=== PATIENT | female | born 1985 | race Caucasian/White ===

== ENCOUNTER 2016-10-12 05:29 | Inpatient (IN) | payer MEDICAID ==
[~2016-10-12] VITALS: Ht 165.1 cm; Wt 91.4 kg
[2016-10-12] VITALS (18 sets, daily range): BP systolic 121–144; BP diastolic 68–82; PULSE 74–106; TEMP 97.4–98.1
[~2016-10-12 05:29] MED LIST: AMOXICILLIN 50500 MG PO; EQUALINE PRENATAL PO; METRONIDAZOLE500 MG PO; MIRENA52 MG; NO HOME MEDICATIONS; NORCO 325 MG-51 TAB PO; PRENATAL1 TA1 PO
[2016-10-12 05:57] LABS: BASO % 0.1 % (0.0-2.0); EOS # 0.2 (0.0-0.7); EOS % 2.1 % (0-4.0); GRAN # 6.6 (1.4-6.5); GRAN % 61.4 % (42.2-75.2); HEMATOCRIT 37.6 % (37.0-47.0); HEMOGLOBIN 12.9 g/dl (12.5-16.0); LYMPH # 2.9 (1.2-3.4); LYMPH % 27.5 % (20.0-51.0); MEAN CELL VOLUME 89 fl (80.0-100.0); MEAN CORPUSCULAR HEMOGLOBIN 31 pg (27.0-31.0); MEAN CORPUSCULAR HGB CONC 34 g/dl (33.0-37.0); MEAN PLATELET VOLUME 12.2 fl (7.4-10.4); MONO # 0.9 (0.1-0.6); MONO % 8.3 % (1.7-9.3); PLATELET COUNT 155 K/mm3 (130-400); RED BLOOD COUNT 4.23 M/mm3 (4.10-5.30); REDCELL DISTRIBUTION WIDTH-CV 13.2 % (11.5-14.5); WHITE BLOOD COUNT 10.7 K/mm3 (4.8-10.8)
[2016-10-12] MEDS ORDERED: PERCOCET 325 MG1 TA2 PO (07:23)
[2016-10-12] MEDS ORDERED: MOTRIN 800800 MG/TAB PO (07:23)
[2016-10-13 00:27] VITALS: BP 142/71; PULSE 88; TEMP 97.4
[2016-10-13 07:41] LABS: HEMATOCRIT 33.2 % (37.0-47.0); HEMOGLOBIN 11.1 g/dl (12.5-16.0)
[2016-10-13 07:52] VITALS: BP 132/70; PULSE 74; TEMP 97.8
[2016-10-13 15:50] VITALS: BP 123/78; PULSE 83; TEMP 98
[2016-10-13 20:00] VITALS: BP 139/79; PULSE 88; TEMP 97.4
[2016-10-14 08:35] VITALS: BP 124/88; PULSE 78; TEMP 97.2
== END 2016-10-14 12:20 | disposition home or self-care (01) | DRG 766 ==
LOC: OB 05:29 → LDR 06:35 → OB 10-14 12:20
PROVIDERS: Obstetrics & Gynecology
PROC: 10D00Z1 Extraction of Products of Conception, Low, Open Approach (ICD-10-PCS; principal; 2016-10-12)
DX: O34.211 Maternal care for low transverse scar from previous cesarean delivery (principal); N85.8 Other specified noninflammatory disorders of uterus; O99.824 Streptococcus B carrier state complicating childbirth; O77.0 Labor and delivery complicated by meconium in amniotic fluid; O48.0 Post-term pregnancy; Z3A.40 40 weeks gestation of pregnancy; Z37.0 Single live birth
CPT/HCPCS: J0690; J1885; J2270; J2405; J2590; J7120

== ENCOUNTER 2017-02-16 12:31 | Emergency (ER) | payer MEDICAID ==
[~2017-02-16] VITALS: Ht 165.1 cm; Wt 77.3 kg
[~2017-02-16 12:31] MED LIST changes: +MOTRIN 800800 MG/TAB PO; +PERCOCET 325 MG1 TA2 PO
[2017-02-16 12:37] VITALS: BP 131/84; PULSE 72; TEMP 98.5
[2017-02-16] MEDS ORDERED: DOXYCYCLINE 10100 MG PO (13:01)
== END 2017-02-16 13:11 | disposition home or self-care (01) ==
LOC: COL.ER 12:31
DX: L08.9 Local infection of the skin and subcutaneous tissue, unspecified (principal)

== ENCOUNTER 2017-06-24 20:25 | Emergency (ER) | payer MEDICAID ==
[~2017-06-24] VITALS: Ht 165.1 cm; Wt 79.5 kg
[~2017-06-24 20:25] MED LIST changes: +DOXYCYCLINE 10100 MG PO
[2017-06-24 20:30] VITALS: BP 122/77; PULSE 68; TEMP 98.5
== END 2017-06-24 21:54 | disposition home or self-care (01) ==
LOC: COL.ER 20:25
DX: S83.92XA Sprain of unspecified site of left knee, initial encounter (principal); Z87.891 Personal history of nicotine dependence

== ENCOUNTER 2018-10-05 13:21 | Emergency (ER) | payer MEDICAID ==
[~2018-10-05] VITALS: Ht 165.1 cm; Wt 76.4 kg
[~2018-10-05 13:21] MED LIST changes: +ZITHROMAX Z PA250 MG PO
[2018-10-05 13:36] VITALS: TEMP 99.1
[2018-10-05 14:45] LABS: COLLECTION METHOD CLEAN CATCH
[2018-10-05 15:04] LABS: MUCOUS Present /lpf; PH 5 (5-8); URINE APPEARANCE Turbid; URINE BACTERIA Rare /hpf; URINE BILIRUBIN Negative (NEGATIVE); URINE BLOOD Negative (NEGATIVE); URINE COLOR Amber; URINE GLUCOSE Negative (NEGATIVE); URINE KETONE Trace (NEGATIVE); URINE LEUKOCYTE ESTERASE Negative (NEGATIVE); URINE NITRATE Negative (NEGATIVE); URINE PROTEIN(semi-quant) Negative (NEGATIVE); URINE RBC None Seen /hpf
[2018-10-05 15:50] LABS: BASO % 0.1 % (0.0-2.0); EOS # 0.2 (0.0-0.7); EOS % 2.5 % (0-4.0); GRAN # 3.2 (1.4-6.5); GRAN % 47.2 % (42.2-75.2); HEMOGLOBIN 12.4 g/dl (12.5-16.0); MEAN CELL VOLUME 91 fl (80.0-100.0); MEAN CORPUSCULAR HEMOGLOBIN 31 pg (27.0-31.0); MEAN CORPUSCULAR HGB CONC 34 g/dl (33.0-37.0); MEAN PLATELET VOLUME 11.2 fl (7.4-10.4); MONO # 0.4 (0.1-0.6); MONO % 6.1 % (1.7-9.3); PLATELET COUNT 249 K/mm3 (130-400); RED BLOOD COUNT 4.03 M/mm3 (4.10-5.30); REDCELL DISTRIBUTION WIDTH-CV 12.1 % (11.5-14.5)
[2018-10-05 15:53] LABS: HEMATOCRIT 36.7 % (37.0-47.0)
[2018-10-05 16:03] LABS: BILIRUBIN,TOTAL 0.2 mg/dL (0.0-1.0); C-REACTIVE PROTEIN 0.8 mg/dL (0.0-0.9); CALCIUM 9.3 mg/dL (8.4-10.2); CREATININE, serum 0.72 mg/dL (0.52-1.25); POTASSIUM 3.9 mmol/L (3.4-5.0); TOTAL PROTEIN 6.8 gm/dL (6.4-8.2)
[2018-10-05 16:23] VITALS: BP 107/66; PULSE 77
== END 2018-10-05 16:24 | disposition left against medical advice (07) ==
LOC: COL.ER 13:21
PROVIDERS: Nurse Practitioner
DX: R19.7 Diarrhea, unspecified (principal); R10.9 Unspecified abdominal pain; Z98.890 Other specified postprocedural states; Z87.891 Personal history of nicotine dependence

== ENCOUNTER 2019-01-02 13:51 | Emergency (ER) | payer SELFPAY ==
[~2019-01-02] VITALS: Ht 165.1 cm; Wt 76.8 kg
[2019-01-02 13:56] VITALS: BP 119/66; TEMP 98.6
[2019-01-02 14:33] LABS: COLLECTION METHOD CLEAN CATCH
[2019-01-02 14:53] LABS: MUCOUS Present /lpf; PH 5 (5-8); URINE APPEARANCE Clear; URINE BACTERIA None Seen /hpf; URINE BILIRUBIN Negative (NEGATIVE); URINE BLOOD Negative (NEGATIVE); URINE COLOR Yellow; URINE GLUCOSE Negative (NEGATIVE); URINE KETONE Negative (NEGATIVE); URINE LEUKOCYTE ESTERASE Negative (NEGATIVE); URINE NITRATE Negative (NEGATIVE); URINE PROTEIN(semi-quant) Negative (NEGATIVE); URINE RBC 0-2 /hpf; URINE UROBILINOGEN Negative (NEGATIVE)
[2019-01-02 16:33] VITALS: PULSE 75
== END 2019-01-02 16:36 | disposition home or self-care (01) ==
LOC: COL.ER 13:51
PROVIDERS: Physician Assistant
DX: O26.891 Other specified pregnancy related conditions, first trimester (principal); R10.9 Unspecified abdominal pain; Z3A.00 Weeks of gestation of pregnancy not specified

== ENCOUNTER 2019-01-13 16:22 | Emergency (ER) | payer SELFPAY ==
[~2019-01-13] VITALS: Ht 165.1 cm; Wt 76.8 kg
[2019-01-13 16:30] VITALS: TEMP 98.6
[2019-01-13 17:10] LABS: COLLECTION METHOD CLEAN CATCH
[2019-01-13 17:15] LABS: BASO % 0.2 % (0.0-2.0); EOS # 0.1 (0.0-0.7); EOS % 1.5 % (0-4.0); GRAN # 5.9 (1.4-6.5); GRAN % 64.3 % (42.2-75.2); HEMOGLOBIN 12.1 g/dl (12.5-16.0); LYMPH # 2.6 (1.2-3.4); LYMPH % 27.9 % (20.0-51.0); MEAN CELL VOLUME 90 fl (80.0-100.0); MEAN CORPUSCULAR HEMOGLOBIN 30 pg (27.0-31.0); MEAN CORPUSCULAR HGB CONC 34 g/dl (33.0-37.0); MEAN PLATELET VOLUME 12.1 fl (7.4-10.4); MONO # 0.5 (0.1-0.6); MONO % 5.8 % (1.7-9.3); PLATELET COUNT 203 K/mm3 (130-400); RED BLOOD COUNT 3.98 M/mm3 (4.10-5.30); REDCELL DISTRIBUTION WIDTH-CV 11.9 % (11.5-14.5)
[2019-01-13 17:19] LABS: HEMATOCRIT 35.8 % (37.0-47.0)
[2019-01-13 17:25] LABS: CALCIUM 8.8 mg/dL (8.4-10.2); CREATININE, serum 0.74 (0.52-1.25); POTASSIUM 3.5 mmol/L (3.4-5.0)
[2019-01-13 17:29] LABS: MUCOUS Present /lpf; PH 6 (5-8); URINE APPEARANCE Hazy; URINE BACTERIA None Seen /hpf; URINE BILIRUBIN Negative (NEGATIVE); URINE BLOOD 2+ (NEGATIVE); URINE COLOR Yellow; URINE GLUCOSE Negative (NEGATIVE); URINE KETONE Negative (NEGATIVE); URINE LEUKOCYTE ESTERASE Trace (NEGATIVE); URINE NITRATE Negative (NEGATIVE); URINE PROTEIN(semi-quant) Negative (NEGATIVE); URINE RBC 20-50 /hpf; URINE UROBILINOGEN Negative (NEGATIVE); URINE WBC 0-2 /hpf
[2019-01-13 19:24] VITALS: BP 123/70; PULSE 71
== END 2019-01-13 19:24 | disposition home or self-care (01) ==
LOC: COL.ER 16:22
PROVIDERS: Emergency Medicine
DX: O20.0 Threatened abortion (principal); F17.210 Nicotine dependence, cigarettes, uncomplicated; Z98.890 Other specified postprocedural states; Z3A.01 Less than 8 weeks gestation of pregnancy

== ENCOUNTER 2019-02-18 19:38 | Emergency (ER) | payer MEDICAID ==
[~2019-02-18] VITALS: Ht 165.1 cm; Wt 76.8 kg
[2019-02-18 19:42] VITALS: BP 129/83; TEMP 97.7
[2019-02-18 20:50] VITALS: PULSE 71
== END 2019-02-18 20:50 | disposition home or self-care (01) ==
LOC: COL.ER 19:38
DX: O20.0 Threatened abortion (principal); Z3A.12 12 weeks gestation of pregnancy

== ENCOUNTER 2019-08-09 10:36 | Outpatient (CLI) | payer MEDICAID ==
[~2019-08-09] VITALS: Ht 165.1 cm; Wt 85.5 kg
--- NOTE | 2019-08-09 10:45 | NUR ---
1045-G8L4 36.1WEEK Patient of Dr. Dominguez ambulatory to LR3 with complaint of vaginal bleeding. Denies leaking of fluid. Reports good movement. Asssisted into gown and placed on EFM. VSS, see flow record. Amnitest by Joey,RN (-) SVE /-3 by JoeyRN unchanged from last office visit 08/08/19. Natalie pad observed, small amount of pink and brown noted on pad. Exam glove with small amount of pink and brown discharge. Assessment complete. Updated patient on plan of care.
[2019-08-09 10:47] VITALS: BP 123/88; PULSE 89; TEMP 97.5
[2019-08-09] MEDS ORDERED: PRENATAL (10:56)
[2019-08-09 11:00] VITALS: BP 123/88; PULSE 89; TEMP 97.5
[2019-08-09 11:49] VITALS: PULSE 78
--- NOTE | 2019-08-09 11:50 | NUR ---
1145 SVE UNCHANGED. SMALL AMOUNT OF PINK DISCHARGE NOTED ON GLOVE. PATIENT DENIES ANY PAIN OR DISCOMFORT. BAY VERY ACTIVE, REACTIVE STRIP NOTED. DR BEE CALLED AND UNDATED, ORDERS GIVEN FOR DISCHARGE FOR INSTRUCTIONS TO RETURN IF INCREASE IN BLEEDING OR ANY PAIN. DISCHARGE INSTRUCTIONS GIVEN TO PATIENT AND BOYFRIEND WITH VERBAL UNDERSTANDING NOTED. 1200 DISMISSED AT THIS TIME TO HOME.
== END 2019-08-09 11:59 | disposition home or self-care (01) ==
LOC: LDRO 10:36
DX: O46.93 Antepartum hemorrhage, unspecified, third trimester (principal); O26.893 Other specified pregnancy related conditions, third trimester; R25.2 Cramp and spasm; Z3A.36 36 weeks gestation of pregnancy

== ENCOUNTER 2019-08-24 12:59 | Outpatient (CLI) | payer MEDICAID ==
[~2019-08-24] VITALS: Ht 165.1 cm; Wt 86.6 kg
[~2019-08-24 12:59] MED LIST changes: +PRENATAL
--- NOTE | 2019-08-24 13:30 | NUR ---
G8L4 at 38.2 weeks gestation to LDR3 with c/o contractions. She is a repeat scheduled for next week. She denies vaginal bleeding and leaking of fluid and reports good movement. Patient changed into gown and wedged to left side in bed, EFMs explained and applied. FHR 140bpm and reative, but intermittently tracing due to movement. No CTX per toco and patient reports that the contractions have stopped since coming to the hospital. VSS. HERNANDEZ /3. Plan of care reviewed.
[2019-08-24 13:32] VITALS: BP 125/75; PULSE 75; TEMP 97.7
--- NOTE | 2019-08-24 14:15 | NUR ---
Irregular contractions per toco, patient reports feeling mild cramping but nothing painful. Discharge instructions reviewed, patient discharged home with instructions.
== END 2019-08-24 14:20 | disposition home or self-care (01) ==
LOC: LDRO 12:59
DX: O62.9 Abnormality of forces of labor, unspecified (principal); Z3A.38 38 weeks gestation of pregnancy

== ENCOUNTER 2019-08-29 05:30 | Inpatient (IN) | payer MEDICAID ==
[~2019-08-29] VITALS: Ht 165.1 cm; Wt 86.8 kg
[2019-08-29] VITALS (20 sets, daily range): BP systolic 105–144; BP diastolic 53–89; PULSE 62–100; TEMP 97.5–98.2
--- NOTE | 2019-08-29 05:35 | NUR ---
0535-Patient ambulatory to unit with family escorted to 209. Assisted into gown and placed on EFM. VSS, see EFM. Denies LOF or VB. Reports good FM. Reviewed plan of care. 0600-IV to left forearm, lab collected and sent to lab per orders. LR infusing per orders see EMAR. Pepcid given per orders see EMAR.
[2019-08-29 06:35] LABS: BASO % 0.2 % (0.0-2.0); EOS # 0.2 (0.0-0.7); EOS % 1.5 % (0-4.0); GRAN # 6.8 (1.4-6.5); GRAN % 65.6 % (42.2-75.2); HEMATOCRIT 37.8 % (37.0-47.0); HEMOGLOBIN 13.3 g/dl (12.5-16.0); LYMPH # 2.6 (1.2-3.4); LYMPH % 24.9 % (20.0-51.0); MEAN CELL VOLUME 89 fl (80.0-100.0); MEAN CORPUSCULAR HEMOGLOBIN 31 pg (27.0-31.0); MEAN CORPUSCULAR HGB CONC 35 g/dl (33.0-37.0); MEAN PLATELET VOLUME 12.4 fl (7.4-10.4); MONO # 0.8 (0.1-0.6); MONO % 7.3 % (1.7-9.3); PLATELET COUNT 157 K/mm3 (130-400); RED BLOOD COUNT 4.27 M/mm3 (4.10-5.30); REDCELL DISTRIBUTION WIDTH-CV 13.7 % (11.5-14.5)
[2019-08-29 06:47] LABS: TRICYCLIC ANTIDEPRESS URINE NEGATIVE
[2019-08-29] MEDS ORDERED: MOTRIN 800800 MG/TAB PO (07:26)
[2019-08-29] MEDS ORDERED: PERCOCET 325 MG1 TA2 PO (07:26)
--- NOTE | 2019-08-29 14:03 | NUR ---
PATIENT REFUSED TO GET OUT OF BED AT THIS TIME
[2019-08-30 05:29] VITALS: BP 125/73; PULSE 76
--- NOTE | 2019-08-30 08:00 | NUR ---
Rests in bed, alert. Feeding baby a bottle. Denies any needs at this time.
[2019-08-30 08:15] VITALS: BP 111/80; PULSE 72; TEMP 98.4
--- NOTE | 2019-08-30 08:46 | NUR ---
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 The patient had a positive UDS during on 03/03/19. Aside from 03/03/19, the patient reports she did not use drugs during . Patient had a negative UDS upon admission. The patient's baby had a negative UDS, currently awaiting cord. The patient reports she has all the baby supplies she needs. She has five other children at home ranging from ages 18-years old to 3-years old all living in the home. ROLLING DOWN MACHINE OPERATOR student provided the [facility] Resource Guide and information on [employer]. The patient reports she already has WIC. A CPS report was filed. CPS # [id number].
[2019-08-30 15:45] VITALS: BP 118/73; PULSE 69; TEMP 97.8
[2019-08-30 20:00] VITALS: BP 113/75; PULSE 78; TEMP 97.9
[2019-08-31 08:00] VITALS: BP 121/86; PULSE 72; TEMP 98.4
--- NOTE | 2019-08-31 09:31 | NUR ---
Patient discharge instructions reviewed with her and significant other. Teaching reviewed. Script for motrin and percocet given and explained. Patient verbalizes understanding. Patient and infant escorted out to private vehicle.
== END 2019-08-31 09:50 | disposition home or self-care (01) | DRG 787 ==
LOC: LDR → OB 05:30 → LDR 10:41 → OB 08-31 09:50
PROVIDERS: ADMIT Obstetrics & Gynecology
PROC: 10D00Z1 Extraction of Products of Conception, Low, Open Approach (ICD-10-PCS; principal; 2019-08-29)
DX: O34.211 Maternal care for low transverse scar from previous cesarean delivery (principal); O99.323 Drug use complicating pregnancy, third trimester; O99.02 Anemia complicating childbirth; D64.9 Anemia, unspecified; F12.90 Cannabis use, unspecified, uncomplicated; O99.820 Streptococcus B carrier state complicating pregnancy; Z3A.39 39 weeks gestation of pregnancy; Z37.0 Single live birth
CPT/HCPCS: J0690; J1885; J2270; J2405; J2590; J3010; J7120

== ENCOUNTER 2020-07-08 22:08 | Emergency (ER) | payer MEDICAID ==
[~2020-07-08] VITALS: Ht 165.1 cm; Wt 76.8 kg
[2020-07-08 22:33] VITALS: TEMP 98.3
[2020-07-09 00:46] LABS: BASO % 0.4 % (0.0-2.0); EOS # 0.2 (0.0-0.7); GRAN # 3.2 (1.4-6.5); GRAN % 45.7 % (42.2-75.2); HEMATOCRIT 37.8 % (37.0-47.0); HEMOGLOBIN 12.8 g/dl (12.5-16.0); LYMPH # 3.1 (1.2-3.4); LYMPH % 44.2 % (20.0-51.0); MEAN CELL VOLUME 92 fl (80.0-100.0); MEAN CORPUSCULAR HEMOGLOBIN 31 pg (27.0-31.0); MEAN CORPUSCULAR HGB CONC 34 g/dl (33.0-37.0); MEAN PLATELET VOLUME 11.4 fl (7.4-10.4); MONO # 0.5 (0.1-0.6); MONO % 6.4 % (1.7-9.3); PLATELET COUNT 219 K/mm3 (130-400); RED BLOOD COUNT 4.13 M/mm3 (4.10-5.30); REDCELL DISTRIBUTION WIDTH-CV 12.5 % (11.5-14.5)
[2020-07-09 00:49] LABS: COLLECTION METHOD CLEAN CATCH
[2020-07-09 00:59] LABS: MUCOUS Present /lpf; PH 5 (5-8); URINE APPEARANCE Hazy; URINE BACTERIA None Seen /hpf; URINE BILIRUBIN Negative (NEGATIVE); URINE BLOOD Negative (NEGATIVE); URINE COLOR Yellow; URINE GLUCOSE Negative (NEGATIVE); URINE KETONE Trace (NEGATIVE); URINE LEUKOCYTE ESTERASE Negative (NEGATIVE); URINE NITRATE Negative (NEGATIVE); URINE PROTEIN(semi-quant) Negative (NEGATIVE); URINE RBC 0-2 /hpf; URINE UROBILINOGEN Negative (NEGATIVE)
[2020-07-09 01:00] LABS: ALBUMIN 4.5 gm/dL (3.5-5.0); BILIRUBIN,TOTAL 0.3 mg/dL (0.0-1.0); C-REACTIVE PROTEIN 1.9 mg/dL (0.0-0.9); CALCIUM 9.5 mg/dL (8.4-10.2); CREATININE, serum 0.91 (0.52-1.25); POTASSIUM 3.8 mmol/L (3.4-5.0); TOTAL PROTEIN 7.7 gm/dL (6.4-8.2)
[2020-07-09] MEDS ORDERED: NORCO 325 MG-51 TAB PO (03:04)
[2020-07-09 03:20] VITALS: BP 116/70; PULSE 60
== END 2020-07-09 03:22 | disposition home or self-care (01) ==
LOC: COL.ER 22:08
PROVIDERS: Nurse Practitioner
DX: R10.2 Pelvic and perineal pain (principal); Z87.891 Personal history of nicotine dependence; Z32.02 Encounter for pregnancy test, result negative; Z88.1 Allergy status to other antibiotic agents
CPT/HCPCS: J1885; J7030; Q9967

== ENCOUNTER 2021-10-06 12:39 | Emergency (ER) | payer MEDICAID ==
[~2021-10-06] VITALS: Ht 165.1 cm; Wt 77.3 kg
[2021-10-06 13:41] VITALS: BP 134/73; TEMP 99.1
[2021-10-06 14:33] VITALS: PULSE 92
== END 2021-10-06 14:33 | disposition home or self-care (01) ==
LOC: COL.ER 12:39
DX: U07.1 COVID-19 (principal)

== ENCOUNTER 2022-02-03 16:35 | Emergency (ER) | payer MEDICAID ==
[~2022-02-03] VITALS: Ht 165.1 cm; Wt 77.3 kg
[2022-02-03 17:02] VITALS: TEMP 98.3
[2022-02-03] MEDS ORDERED: MILI 0.25-0.031 EACH PO (17:25)
[2022-02-03] MEDS ORDERED: BACTROBAN15 GM TOP (17:47)
[2022-02-03] MEDS ORDERED: AMOXICILLIN 50500 MG PO (17:47)
[2022-02-03 17:59] VITALS: BP 119/71; PULSE 68
== END 2022-02-03 18:00 | disposition home or self-care (01) ==
LOC: COL.ER 16:35
DX: L01.00 Impetigo, unspecified (principal); Z88.1 Allergy status to other antibiotic agents; Z28.310 Unvaccinated for COVID-19

== ENCOUNTER 2022-02-25 19:03 | Emergency (ER) | payer MEDICAID ==
[~2022-02-25] VITALS: Ht 165.1 cm; Wt 78.6 kg
[~2022-02-25 19:03] MED LIST changes: +BACTROBAN15 GM TOP; +MILI 0.25-0.031 EACH PO
[2022-02-25 20:29] VITALS: BP 135/83; PULSE 80; TEMP 98.1
== END 2022-02-25 20:29 | disposition home or self-care (01) ==
LOC: COL.ER 19:03
DX: J10.1 Influenza due to other identified influenza virus with other respiratory manifestations (principal); Z20.822 Contact with and (suspected) exposure to COVID-19; Z28.310 Unvaccinated for COVID-19

== ENCOUNTER 2022-03-28 17:03 | Emergency (ER) | payer MEDICAID ==
[~2022-03-28] VITALS: Ht 165.1 cm; Wt 77.3 kg
[2022-03-28 17:07] VITALS: TEMP 97.3
[2022-03-28 17:39] LABS: BASO % 0.3 % (0.0-2.0); EOS # 0.3 K/mm3 (0.0-0.7); GRAN # 5.1 K/mm3 (1.4-6.5); GRAN % 56.9 % (42.2-75.2); HEMATOCRIT 38.4 % (37.0-47.0); LYMPH % 33.2 % (20.0-51.0); MEAN CELL VOLUME 90 fl (80.0-100.0); MEAN CORPUSCULAR HEMOGLOBIN 30 pg (27-31); MEAN CORPUSCULAR HGB CONC 34 g/dl (33.0-37.0); MEAN PLATELET VOLUME 11.3 fl (7.4-10.4); MONO # 0.6 K/mm3 (0.1-0.6); MONO % 6.4 % (1.7-9.3); PLATELET COUNT 243 K/mm3 (130-400); RED BLOOD COUNT 4.28 M/mm3 (4.10-5.30); REDCELL DISTRIBUTION WIDTH-CV 12.5 % (11.5-14.5)
[2022-03-28 17:52] LABS: ALBUMIN 3.6 gm/dL (3.5-5.0); BILIRUBIN,TOTAL 0.3 mg/dL (0.2-1.2); CALCIUM 9.3 mg/dL (8.4-10.2); CREATININE, serum 1.02 mg/dL (0.57-1.11); POTASSIUM 3.6 mmol/L (3.5-4.5); TOTAL PROTEIN 7.2 gm/dL (6.2-8.1)
[2022-03-28 17:58] LABS: TROPONIN-I 0.01 ng/mL (0.00-0.033)
[2022-03-28] MEDS ORDERED: ZOFRAN ODT4 MG PO (18:09)
[2022-03-28 18:49] VITALS: BP 108/68; PULSE 75
== END 2022-03-28 18:50 | disposition home or self-care (01) ==
LOC: COL.ER 17:03
PROVIDERS: Emergency Medicine
DX: E86.0 Dehydration (principal); R51.9 Headache, unspecified; Z20.822 Contact with and (suspected) exposure to COVID-19; Z28.310 Unvaccinated for COVID-19
CPT/HCPCS: J2765; J7030

== ENCOUNTER 2022-11-10 16:41 | Emergency (ER) | payer MEDICAID ==
[~2022-11-10] VITALS: Ht 165.1 cm; Wt 79.5 kg
[~2022-11-10 16:41] MED LIST changes: +ZOFRAN ODT4 MG PO
[2022-11-10 16:49] VITALS: BP 126/85; PULSE 82; TEMP 98.2
[2022-11-10] MEDS ORDERED: PEN-VEE K500 MG PO (17:28)
== END 2022-11-10 17:40 | disposition home or self-care (01) ==
LOC: COL.ER 16:41
DX: J03.90 Acute tonsillitis, unspecified (principal); Z88.1 Allergy status to other antibiotic agents; Z28.310 Unvaccinated for COVID-19

== ENCOUNTER 2023-06-15 08:46 | Emergency (ER) | payer MEDICAID ==
[~2023-06-15] VITALS: Ht 165.1 cm; Wt 79.5 kg
[~2023-06-15 08:46] MED LIST changes: +PEN-VEE K500 MG PO
[2023-06-15 08:52] VITALS: BP 128/87; TEMP 97.8
[2023-06-15 09:48] VITALS: PULSE 78
== END 2023-06-15 09:58 | disposition home or self-care (01) ==
LOC: COL.ER 08:46
DX: J02.9 Acute pharyngitis, unspecified (principal); Z28.310 Unvaccinated for COVID-19